=== PATIENT | male | born 1945 | race Caucasian/White ===

== ENCOUNTER 2024-10-18 06:51 | Emergency (ER) | payer OTHER, SELFPAY ==
[2024-10-18 06:52] VITALS: BMI 27.1
[2024-10-18 07:00] VITALS: BP 181/82; PULSE 52; RESP 19; TEMP 36.8; O2SAT 96
--- NOTE | 2024-10-18 07:04 | XR_ITS ---
Examination: CT brain head without contrast. 2-D sagittal coronal reconstructions Date and time of exam:October 18, 2024 0813 hours INDICATIONS: Back of the head pain beginning this morning CTDI: vol (mGy):55.5 DLP: (mGycm):1041 Technique: Multiple CT axial sections of the brain have been obtained, 5 mm slice thickness. Contrast has not been administered. 2-D sagittal, coronal reconstructions have been obtained Low dose protocols were performed. One or more of the following dose reduction techniques were used; automated exposure control, adjustment of the mA and/or KV according to patient size, use of iterative reconstruction technique. Findings: No significant ventricular enlargement. Intra-axial or extra-axial hemorrhage density is not seen. No mass effect or midline shift Basal cisterns are not remarkable. Fourth ventricle is midline. Cranial vault intact. Impression: Negative for acute hemorrhage, mass effect or midline shift Advise clinical correlation follow-up accordingly
--- NOTE | 2024-10-18 07:09 | PD.EDRME ---
Rapid Medical Screening Exam RME Arrival date/time: 10/18/24 06:51 79-year-old male presents to the emergency department today with complaints of headache x 1 week Chief Complaint: Headache Vital signs: Vital Signs Temperature 98.2 F 10/18/24 07:00 Pulse Rate 52 L 10/18/24 07:00 Respiratory Rate 19 10/18/24 07:00 Blood Pressure 181/82 H 10/18/24 07:00 Pulse Oximetry (%) 96 10/18/24 07:00 Oxygen Delivery Method Room Air 10/18/24 07:00
[2024-10-18 07:29] LABS: Basophils # (Auto) 0.1 Thou/mm3 (0.0-0.2); Basophils % (Auto) 1 % (0-2.5); Eosinophils # (Auto) 0.1 Thou/mm3 (0.0-0.5); Eosinophils % (Auto) 2 % (0-10); Hematocrit 46.1 % (41.0-53.0); Hemoglobin 15.9 g/dL (13.5-16.0); Immature Granulocytes % (Auto) 1 % (0-0); Immature Granulocytes Auto 0.07 Thou/mm3 (0.00-0.00); Lymphocytes # (Auto) 1.8 Thou/mm3 (1.0-4.8); Lymphocytes % (Auto) 26 % (10-50); Mean Corpuscular HGB Conc 34.5 g/dl (31.0-37.0); Mean Corpuscular Hemoglobin 30.4 pg (25.0-35.0); Mean Corpuscular Volume 88 fL (80-100); Monocytes # (Auto) 0.7 Thou/mm3 (0.0-0.8); Monocytes % (Auto) 10 % (0-12); Neutrophils # (Auto) 4.1 Thou/mm3 (1.8-7.7); Neutrophils % (Auto) 61 % (37-80); Nucleated Red Blood Cell % 0 /100 WBC (0); Platelet Count 203 Thou/mm3 (140-440); RDW Standard Deviation 40.9 fL (35.1-43.9); Red Blood Count 5.23 Miln/mm3 (4.50-5.90); White Blood Count 6.8 Thou/mm3 (3.8-10.6)
--- NOTE | 2024-10-18 07:48 | EDNOTE_ITS ---
<Statement entered by Sirena George MD - 10/19/24 17:33> As co-signing physician, I was present and available for consult prn. I concur with the plan and care as documented by the midlevel provider. ED Headache RME/HPI General Chief Complaint: Headache Stated Complaint: HEADACHE X3 DAYS Arrival date/time: 10/18/24 06:51 RME / HPI RME / HPI Narrative: 10/18/24 06:51 79-year-old male presents to the emergency department today with complaints of headache x 1 week ------ Main ED Evaluation: Patient is a 79-year-old male with past medical history of hypertension, afib on Eliquis, depression, and benign essential tremor who presented to the ED today 10/18/2024 due to occipital headache beginning about 3 days ago. He describes the headache as a dull pain, nonradiating, rated 8/10, without any aggravating or alleviating factors. No changes to the pain with positioning. The pain does not prevent him from falling asleep nor did it wake him from sleep. Patient does not note any recent trauma, falls, or triggers to the headache. Patient reports that he has never had a headache like this in the past and does not usually get headaches. He cannot remember what happened when it onset but notes that the only recent change he realized was that he was combing his hair 5 days ago and a small lesion was combed over at the top of his head which is now scabbed over. He denies pain to that area. He denies any photophobia, neck stiffness, weakness, sensation changes, vision changes, or problems with walking. Patient has tried Tylenol at home without relief of the symptoms. Patient has not had any recent medication changes. Patient denies ever being diagnosed with a stroke in the past, and since head scans have been negative for stroke it has been removed from the patient's problem list as it appears to have been inaccurately documented. Complaint: headache Onset (ago): day(s) Onset description: gradual Location: occipital Severity: moderate Severity scale (1-10): 8 Quality: constant and different than previous headaches Relieving factors: nothing Exacerbating factors: none Context: occurred at rest Associated symptoms: none Treatments prior to arrival: acetaminophen Related Data Home Medications ?Medication ?Instructions ?Recorded ?Confirmed alprazolam 1 mg tablet (Xanax) 1 mg PO TID PRN Anxiety #0 tabs 04/30/15 05/20/18 quetiapine 100 mg tablet (Seroquel) 50 mg PO HS #0 tab s 04/30/15 05/20/18 sertraline 100 mg tablet (Zoloft) 200 mg PO HS #0 tabs 04/30/15 05/20/18 apixaban 5 mg tablet (Eliquis) 5 mg PO BID 11/07/17 aripiprazole 5 mg tablet (Abilify) 5 mg PO QDAY 05/20/18 finasteride 5 mg tablet 5 mg PO QDAY 11/07/17 losartan 25 mg tablet 25 mg PO QDAY 11/07/1705/20 tamsulosin 0.4 mg capsule 0.4 mg PO QDAY 11/07/1705/08 mirabegron 50 mg tablet,extended 50 mg PO QDAY 8 05/20/18 release 24 hr (Myrbetriq) Previous Rx's ?Medication ?Instructions ?Recorded diltiazem HCl 120 mg 180 mg (1.5 x 120 mg) PO QDA Y ##30 05/05/15 capsule,extended release 24 hr (Cardizem CD) Allergies Allergy/AdvReac Type Severity Reaction Status Date / Time acetaminophen (From Vicodin) Allergy JITTERY Verified 05/20/18 10:06 hydrocodone (From Vicodin) Allergy Verified 05/20/18 10:06 Past Medical History Past Medical History Comments PMH COMMENT: Past Medical History: Hypertension, afib on Eliquis, benign essential tremor, depression Surgical History: Spinal fusion, vasectomy, knee surgery, bilateral knee replacements, right shoulder surgery, cholecystectomy Social History: Remote history of smoking in his 20s, rare occasional alcohol use, denies recreational drug use Current Medications: Eliquis 5 mg BID, diltiazem 90 mg qday, propanolol 20 mg qday, sertraline 100 mg qday (Source: Patient medication bottles) Allergies: Hydrocodone-acetaminophen - jittery ED Exam Narrative Physical exam: Physical Exam General: Awake and in no acute distress. Conversational and non-toxic appearing. HEENT: Normocephalic, atraumatic, mucous membranes moist. There is a 6 mm x 2 mm dried scab on left sided upper scalp. Heart: Bradycardic rate and rhythm, no murmurs. Lungs: Clear to auscultation with no wheezing or crackles. Abdomen: Soft, nondistended, nontender, positive bowel sounds. ?No guarding or rebound tenderness. Neurologic: Alert and oriented x3, no gross neurological deficit, and patient able to move all 4 extremities. Neuro Stroke Exam: -Alert and oriented x3. -CN II-XII intact. -Normal visual velazquez. -Normal fluent speech. -No facial droop. -Strength 5/5 bilateral arms, 5/5 ultrasonic solderer strength. -Strength 5/5 bilateral lower extremities. -Intact sensation bilaterally. -Normal [id number], normal dfxn-es-[id number] testing. -Negative Romberg, negative pronator drift. -Normal gait. -Visual acuity testing shows 20/20 bilateral, 20/15 right, 20/70 left -Negative Brudzinski's sign Extremities: No edema. Skin: No rash or ecchymoses. Course Quality Measures none Orders Category Date Time Status EKG (ED ONLY) *Do not use* NOW Care 10/18/24 09:41 Completed Insert IV NOW Care 10/18/24 08:[address] head/brain wo con Stat Exams 10/18/24 07:04 Completed EKG (ED Only) Stat Exams 10/18/24 09:40 Draft CBC Stat Lab 10/18/24 07:14 Completed Comprehensive Metabolic Panel Stat Lab 10/18/24 07:14 Completed Partial Thromboplastin Time Stat Lab 10/18/24 07:14 Completed Prothrombin Time with INR Stat Lab 10/18/24 07:14 Completed Morphine Inj Med 10/18/24 08:13 Discontinued 2 mg IVP X1 ONE hydrALAZINE HCL [Apresoline] Med 10/18/24 10:10 Discontinued 25 mg PO X1 ONE Vital Signs Vital signs: Vital Signs Temperature 98.2 F 10/18/24 07:00 Pulse Rate 52 L 10/18/24 07:00 Respiratory Rate 19 10/18/24 07:00 Blood Pressure 181/82 H 10/18/24 07:00 Pulse Oximetry (%) 96 10/18/24 07:00 Oxygen Delivery Method Room Air 10/18/24 07:00 Procedures -ED EKG Interpretation #1: Date of EK10/18/24 Time of EK:55 Rate: 50 Interpretation: Interpreted by me EKG Impression: No acute ST-T changes and No ischemic changes Additional EKG comment: Sinus bradycardia Headache MDM Narrative MDM Narrative:: Possible differentials for headache for the patient's age include: tension headache, migraine, vertebral artery stenosis, carotid artery stenosis, cranial mass/tumor, trauma, contusion, soft tissue infection/abscess, temporal arteritis, subarachnoid hemorrhage, meningitis, encephalitis, stroke. CT scan of the head today was negative for any bleeds, strokes, or masses. Patient was hypertensive to 181/82 but did not take his blood pressure medication today yet. BP normalized after receiving 2 mg morphine IV. Patient is feeling better after the morphine and rated the pain about 1 out of 10. Lab work was within normal limits, patient has baseline kidney functioning. EKG showed sinus bradycardia with a rate of 50. Patient was encouraged to speak to his PCP regarding low heart rate and his current medication regimen. Patient was determined stable for discharge home, and given precautions to return to the hospital in case of returning or worsening symptoms including any sudden vision changes, weakness or change to sensation, new fever, sudden onset severe headache, or neck stiffness. Patient data External records reviewed:: [facility] previous records Clinical information provided by:: patient Social determinants that could affect healthcare access:: none Patient has the following chronic illnesses:: As above How is presenting disease/condition affected by chronic disease/condition?: uneffected by Evaluation data The following diagnostics were reviewed and interpreted by me:: lab results, radiology exam(s) and EKG tracing(s) Lab and/or radiology exams considered but not ordered:: Ordered Interpretation Summary: CT head without contrast Findings: No significant ventricular enlargement. Intra-axial or extra-axial hemorrhage density is not seen. No mass effect or midline shift Basal cisterns are not remarkable. Fourth ventricle is midline. Cranial vault intact. Impression: Negative for acute hemorrhage, mass effect or midline shift Advise clinical correlation follow-up accordingly Medications / Prescriptions Medications or Prescriptions considered but not ordered:: Given Medication administrations:: Medication Administration History Discontinued Medications Hydralazine HCl (Hydralazine Hcl 25 Mg Tablet) 25 mg PO X1 ONE Stop: 10/18/24 10:11 Last Admin: 10/18/24 10:47 Dose: Not Given Documented By: BRAYAN Non-Admin Reason: Cancelled by Provider Morphine Sulfate (Morphine Sulf Inj 10 Mg/Ml Vial) 2 mg IVP X1 ONE Stop: 10/18/24 08:14 Last Admin: 10/18/24 08:35 Dose: 2 mg Documented By: BRAYAN Given Consultations Consultation(s) initiated? (list below): No Diagnosis Differential diagnosis headache: migraine, tension headache, subarachnoid hemorrhage, headache, meningitis and sinusitis Most likely diagnosis given after review of the tests above:: Tension headache Admission Indicated Admission indicated?: not indicated Admission Request Was there a request for admission?: No Disposition Plan Disposition Plan: Discharge Discharge Attestation Discharge Attestation: The patient and all family members were given an opportunity to ask questions and understood the discharge instructions. Discharge instructions specifically effects, indications for sooner follow up or return to the emergency department, and the expected course of current diagnosis. Patient condition: Stable Discharge Plan Plan Patient Disposition: HOME (Self Care) Patient condition on transfer: Stable Prescriptions/Referrals Prescriptions/Med Rec: No Action quetiapine [Seroquel] 100 MG tablet 50 mg PO HS Qty: 0 alprazolam [Xanax] 1 MG tablet 1 mg PO TID PRN (Reason: Anxiety) Qty: 0 sertraline [Zoloft] 100 MG tablet 200 mg PO HS Qty: 0 diltiazem HCl [Cardizem CD] 120 MG capsule,extended release 24hr 180 mg PO QDAY Qty: 30 0RF losartan 25 mg Tablet 25 mg PO QDAY aripiprazole [Abilify] 5 mg Tablet 5 mg PO QDAY apixaban [Eliquis] 5 mg Tablet 5 mg PO BID finasteride 5 mg Tablet 5 mg PO QDAY tamsulosin 0.4 mg Capsule,Extended Release 24hr 0.4 mg PO QDAY mirabegron [Myrbetriq] 50 mg Tablet Extended Release 24 Hr 50 mg PO QDAY Referrals: Adrián Lerma MD [Primary Care Provider] - In 1 week Problem List Clinical Impression: Headache, Bradycardia, sinus Patient/Caregiver Discharge Instructions Discharge Activity: activity as tolerated and resume usual activities Education Materials: Self-Care for Headaches, Understanding Headache Pain, ED Headache, Tension Additional Instructions: Today you were evaluated for possible causes of headache. A CT scan was done of the brain which was negative for any problems, including any bleeds, strokes, or masses. Your lab work was within normal limits. Please follow up with your regular doctor and let them know of this ED visit. Your heart rate was low on today's evaluation, in the 45-55 range so please let your regular doctor know in case any medication adjustments need to be made. Please return to the hospital in case of returning or worsening symptoms. Warning signs to look for may include any sudden vision changes, weakness or change to sensation, new fever, sudden onset severe headache, or neck stiffness. Print Language: Mozambican Stand Alone Forms: Becki Award Info., Patient Portal Info Letter
[2024-10-18 07:51] LABS: Partial Thromboplastin Time 27.6 Seconds (22.0-36.0); Prothrombin Time 11.4 Seconds (9.0-12.2)
[2024-10-18 07:54] LABS: Alanine Aminotransferase 27 U/L (10-49); Albumin, Serum 4.5 gm/dL (3.4-4.8); Albumin/Globulin Ratio 1.6 (1.2-2.2); Alkaline Phosphatase 73 U/L (46-116); Anion Gap 5 (7-16); Aspartate Amino Transferase 20 U/L (0-34); BUN/Creatinine Ratio 13 Ratio (12-20); Bilirubin,Total 0.9 mg/dL (0.3-1.2); Blood Urea Nitrogen 16 mg/dL (9-23); Calcium 9.8 mg/dL (8.3-10.6); Calcium (Corrected) 9.8 mg/dL (8.5-10.1); Carbon Dioxide 26.8 mMol/L (20.0-31.0); Chloride 107 mMol/L (98-107); Creatinine (Component) 1.2 mg/dL (0.6-1.3); Estimated Creatinine Clearance 53.2 mL/min (>60); Globulin 2.8 gm/dL (2.3-3.5); Glucose 107 mg/dL (74-106); Osmolality,Calculated 278 (275-295); Potassium 4.4 mMol/L (3.4-5.1); Sodium 139 mMol/L (136-145); Total Protein 7.3 gm/dL (5.7-8.2); eGFR > 60 See Note
[2024-10-18] MEDS: MORPHINE SULF INJ 10 MG/ML VIAL 2 MG IVP (08:35)
[2024-10-18 09:00] VITALS: BP 142/72; PULSE 44; RESP 16; TEMP 36.7; O2SAT 100
--- NOTE | 2024-10-18 09:40 | EKG_ITS ---
[facility] Test Date: 2024-10-18 Pat Name: ELISSA ESCALANTE Department: Room: - Gender: Male Travel Rn: : 1945 Requested By: Martha Candelaria Order Number: [id number] Reading MD: Martha Candelaria Measurements Intervals [place] Rate: 50 P: 9 PA: 176 QRS: 0 QRSD: 98 T: 38 QT: 434 QTc: 397 Interpretive Statements SINUS BRADYCARDIA Compared to ECG 01/25/2018 07:44:35 No significant changes /[id number]/[id number]
[2024-10-18 11:06] VITALS: BP 159/79; PULSE 50; RESP 16; TEMP 36.7; O2SAT 99
== END 2024-10-18 11:03 | disposition home or self-care (01) ==
PROVIDERS: Nurse Practitioner Primary Care; Emergency Provider Emergency Medicine; PCP Internal Medicine
DX: R51.9 Headache, unspecified (principal); R00.1 Bradycardia, unspecified; I10 Essential (primary) hypertension; I48.91 Unspecified atrial fibrillation; Z79.01 Long term (current) use of anticoagulants
CPT/HCPCS: 36415; 70450; 80053; 85025; 85610; 85730; 93005; 96374; 99284; J2270

== ENCOUNTER → 2024-12-09 | Outpatient (CLI) | payer OTHER, SELFPAY ==
[2024-12-09 10:34] LABS: Basophils # (Auto) 0.1 Thou/mm3 (0.0-0.2); Basophils % (Auto) 1 % (0-2.5); Eosinophils # (Auto) 0.1 Thou/mm3 (0.0-0.5); Eosinophils % (Auto) 1 % (0-10); Hematocrit 44.7 % (41.0-53.0); Hemoglobin 15.3 g/dL (13.5-16.0); Immature Granulocytes % (Auto) 1 % (0-0); Immature Granulocytes Auto 0.07 Thou/mm3 (0.00-0.00); Lymphocytes # (Auto) 1.8 Thou/mm3 (1.0-4.8); Lymphocytes % (Auto) 27 % (10-50); Mean Corpuscular HGB Conc 34.2 g/dl (31.0-37.0); Mean Corpuscular Hemoglobin 30.6 pg (25.0-35.0); Mean Corpuscular Volume 89 fL (80-100); Monocytes # (Auto) 0.6 Thou/mm3 (0.0-0.8); Monocytes % (Auto) 8 % (0-12); Neutrophils # (Auto) 4.3 Thou/mm3 (1.8-7.7); Neutrophils % (Auto) 62 % (37-80); Nucleated Red Blood Cell % 0 /100 WBC (0); Platelet Count 214 Thou/mm3 (140-440); RDW Standard Deviation 42.6 fL (35.1-43.9); White Blood Count 6.9 Thou/mm3 (3.8-10.6)
[2024-12-09 10:44] LABS: Glucose Estimated Average 120 mg/dL (80-131); Hemoglobin A1C 5.8 % Hgb (4.8-6.0)
[2024-12-09 10:48] LABS: Alanine Aminotransferase 24 U/L (10-49); Albumin, Serum 4.3 gm/dL (3.4-4.8); Albumin/Globulin Ratio 1.7 (1.2-2.2); Alkaline Phosphatase 68 U/L (46-116); Anion Gap 6 (7-16); Aspartate Amino Transferase 19 U/L (0-34); BUN/Creatinine Ratio 13 Ratio (12-20); Bilirubin,Total 0.9 mg/dL (0.3-1.2); Blood Urea Nitrogen 14 mg/dL (9-23); Calcium 9.5 mg/dL (8.3-10.6); Calcium (Corrected) 9.5 mg/dL (8.5-10.1); Carbon Dioxide 29.1 mMol/L (20.0-31.0); Cardiac Risk Estimate 3.3 RATIO (4.0-6.7); Chloride 102 mMol/L (98-107); Cholesterol 153 mg/dL (132-200); Creatinine (Component) 1.1 mg/dL (0.6-1.3); Free T4 (Free Thyroxine) 1.14 ng/dL (0.89-1.76); Globulin 2.5 gm/dL (2.3-3.5); Glucose 101 mg/dL (74-106); HDL Cholesterol 46 mg/dL (40-60); LDL Cholesterol,Calculated 88 mg/dL (0-130); Osmolality,Calculated 274 (275-295); Potassium 4.7 mMol/L (3.4-5.1); Sodium 137 mMol/L (136-145); Total Protein 6.8 gm/dL (5.7-8.2); Triglycerides 96 mg/dL (30-150); eGFR > 60 See Note
[2024-12-09 11:01] LABS: Vitamin D 25 Hydroxy Total 41.1 ng/mL (7.3-40.2)
== END | disposition home or self-care (01) ==
LOC: COPL 09:40
PROVIDERS: PCP Internal Medicine; Referring Provider Internal Medicine; Visit Provider Internal Medicine
DX: Z00.00 Encounter for general adult medical examination without abnormal findings (principal); E55.9 Vitamin D deficiency, unspecified
CPT/HCPCS: 36415; 80053; 80061; 82306; 83036; 84439; 84443; 85025

== ENCOUNTER → 2025-03-03 | Outpatient (CLI) | payer OTHER, SELFPAY ==
[2025-03-16 05:44] LABS: Source ST
== END | disposition home or self-care (01) ==
LOC: SLDO 11:35
PROVIDERS: PCP Internal Medicine; Referring Provider Internal Medicine; Visit Provider Internal Medicine
DX: R19.7 Diarrhea, unspecified (principal)
CPT/HCPCS: 87015; 87045; 87046; 87177; 87209; 87899